=== PATIENT | male | born 1970 | race Caucasian/White ===

== ENCOUNTER 2016-10-22 12:48 | Inpatient (IN) | payer OTHER ==
[2016-10-22 14:40] VITALS: BMI 26.1
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
[2016-10-22] MEDS ORDERED: NICOTINE POLACRILEX 2 MG GUM BC PRN (16:58)
[2016-10-22] MEDS ORDERED: MENTHOL/PHENOL 1 EACH UD MM PRN (16:58)
[2016-10-22] MEDS ORDERED: MAGNESIUM HYDROX 2400MG/30ML ORAL SUSPENSION 30 ML CUP PO PRN (16:58)
[2016-10-22] MEDS ORDERED: guaiFENesin/D-METHORPHAN HB 10 ML UNIT-DOSE CUPS PO PRN (16:58)
[2016-10-22] MEDS ORDERED: IBUPROFEN 400 MG TABLET (FP) PO PRN (16:58)
[2016-10-22] MEDS ORDERED: LOPERAMIDE HCL 2 MG CAPSULE PO PRN (16:58)
[2016-10-22] MEDS ORDERED: P-EPHED 60MG/TRIPROLIDI 2.5MG TABLET PO PRN (16:58)
[2016-10-22] MEDS ORDERED: MAGNESIUM CITRATE 300 ML BOTTLE PO PRN (16:58)
[2016-10-22] MEDS ORDERED: ACETAMINOPHEN 325 MG TABLET (FP) PO PRN (16:58)
[2016-10-22] MEDS ORDERED: chlordiazePOXIDE HCL 25 MG CAPSULE PO ONE (17:45)
[2016-10-22] MEDS ORDERED: METHADONE HCL 10 MG TABLET (FOR DETOX USE ONLY) PO ONE ×2 (17:45→23:00)
[2016-10-22 20:27] LABS: URINE APPEARANCE CLEAR; URINE BILIRUBIN NEGATIVE (NEGATIVE); URINE COLOR AMBER; URINE GLUCOSE (UA) NEGATIVE (NEGATIVE); URINE KETONE 1+ (NEGATIVE); URINE LEUK ESTERASE NEGATIVE (NEGATIVE); URINE NITRITE NEGATIVE (NEGATIVE); URINE UROBILINOGEN 2.0 E.U/dl E.U./dl (0.2-1.0)
[2016-10-22 20:28] LABS: URINE BLOOD 1+ (NEGATIVE); URINE PROTEIN 1+ (NEGATIVE)
[2016-10-22 20:38] LABS: GRANULAR CASTS 6 /lpf; URINE BACTERIA RARE /hpf (NONE SEEN); URINE HYALINE CAST 8 /lpf; URINE MUCUS MANY; URINE RBC 1 /hpf (0-3); URINE WBC 3 /hpf (3-5)
[2016-10-22] MEDS: INSULIN SLIDING SCALE (NOVOLOG) 1 VIAL SQ SCH (21:06)
[2016-10-22] MEDS: chlordiazePOXIDE HCL 25 MG CAPSULE PO SCH (22:29)
[2016-10-22] MEDS: THIAMINE HCL 100 MG TABLET (FP) PO SCH (22:29)
[2016-10-22] MEDS: diphenhydrAMINE HCL 50 MG CAPSULE PO PRN (22:29)
[2016-10-23] MEDS: chlordiazePOXIDE HCL 25 MG CAPSULE PO SCH ×4 (05:44→22:34)
[2016-10-23] MEDS: INSULIN SLIDING SCALE (NOVOLOG) 1 VIAL SQ SCH ×4 (06:23→21:41)
[2016-10-23] MEDS ORDERED: METHADONE HCL 10 MG TABLET (FOR DETOX USE ONLY) PO SCH (10:00)
[2016-10-23] MEDS: PRENATAL VITAMINS W/ FOLIC ACID TABLET (FP) PO SCH (10:16)
[2016-10-23] MEDS: NICOTINE 14 MG/24 HOURS TOPICAL PATCH TD SCH (10:16)
[2016-10-23 10:46] LABS: ALBUMIN 4.1 g/dl (3.4-5.0); ALK PHOS 94 U/L (45-117); ANION GAP 12 (8-16); BILIRUBIN,TOTAL 0.8 mg/dL (0.2-1.0); CALCIUM 9.1 mg/dL (8.5-10.1); CO2 25 mmol/L (21-32); CREATININE 1.1 mg/dL (0.7-1.3); GLUCOSE,RANDOM 146 mg/dL (74-106); MCHC 33.5 g/dl (32.0-35.9); MEAN CELL VOLUME 89.7 fl (80-96); MEAN PLT VOLUME 8.3 fl (7.5-11.1); PLATELET COUNT 172 K/MM3 (134-434); RDW 15.2 % (11.9-15.9); SGOT/AST 101 U/L (15-37); SGPT/ALT 81 U/L (12-78); WHITE BLOOD COUNT 5.5 K/mm3 (4.0-10.0)
--- NOTE | 2016-10-23 11:39 | PN ---
S CIWA - CIWA Score Nausea/Vomitin Muscle Tremors: 4-Moderate,w/Arms Extend Anxiety: 4-Mod. Anxious/Guarded Agitation: 4-Moderately Restless Paroxysmal Sweats: 3 Orientation: 0-Oriented Tacttile Disturbances: 1-Very Mild Itch/Numbness Auditory Disturbances: 0-None Visual Disturbances: 0-None Headache: 0-None Present CIWA-Ar Total Score: 19 BHS COWS - Scale Resting Pulse: 1= [place] 81-100 Sweatin= Chills/Flushing Restless Observation: 1= Difficult to Sit Still Pupil Size: 1= Pupils >than Normal Bone or Joint Aches: 1= Mild Discomfort Runny Nose/ Eye Tearin= Nasal Congestion GI Upset > 30mins: 2= Nausea/Diarrhea Tremor Observation of Outstretched Hands: 2= Slight Tremor Visible Yawning Observation: 1= 1-2x During Session Anxiety or Irritability: 2=Irritable/Anxious Goose Flesh Skin: 3=Piloerection COWS Score: 16 S Progress Note (SOAP) Subjective: nausea, sweats, interrupted sleep, anxiety, tremor Objective: 10/23/16 11:38 Vital Signs - 24 hr 10/22/16 10/22/16 10/22/16 14:38 17:53 22:22 Temperature 98.6 F 98.1 F 99.2 F Pulse Rate 106 H 88 90 Respiratory 18 18 20 Rate Blood Pressure 123/71 115/76 121/74 10/23/16 10/23/16 10/23/16 00:30 03:30 06:37 Temperature 98.7 F Pulse Rate 64 Respiratory 18 18 18 Rate Blood Pressure 124/82 10/23/16 09:33 Temperature 97.8 F Pulse Rate 68 Respiratory 18 Rate Blood Pressure 105/74 Laboratory Tests 10/22/16 10/22/16 10/22/16 15:50 19:00 21:00 WBC RBC Hgb Hct MCV MCHC RDW Plt Count MPV Sodium Potassium Chloride Carbon Dioxide Anion Gap BUN Creatinine Creat Clearance w eGFR POC Glucometer 192 111 Random Glucose Calcium Total Bilirubin AST ALT Alkaline Phosphatase Total Protein Albumin Urine Color [place] Urine Appearance Clear Urine pH 6.0 Ur Specific [place] 1.020 Urine Protein 1+ H Urine Glucose (UA) Negative Urine Ketones 1+ H Urine Blood 1+ H Urine Nitrite Negative Urine Bilirubin Negative Urine Urobilinogen 2.0 e.u/dl Ur Leukocyte Esterase Negative Urine RBC 1 Urine WBC 3 Ur Epithelial Cells Rare Urine Bacteria Rare Hyaline Casts 8 Granular Casts 6 Urine Mucus Many 10/23/16 10/23/16 10/23/16 05:43 06:00 06:00 WBC 5.5 RBC 4.68 Hgb 14.0 Hct 41.9 MCV 89.7 MCHC 33.5 RDW 15.2 Plt Count 172 MPV 8.3 D Sodium 138 Potassium 3.9 Chloride 101 Carbon Dioxide 25 Anion Gap 12 BUN 7 D Creatinine 1.1 D Creat Clearance w eGFR > 60 POC Glucometer 103 Random Glucose 146 H D Calcium 9.1 Total Bilirubin 0.8 AST 101 H D ALT 81 H D Alkaline Phosphatase 94 D Total Protein 8.0 Albumin 4.1 Urine Color Urine Appearance Urine pH Ur Specific [place] Urine Protein Urine Glucose (UA) Urine Ketones Urine Blood Urine Nitrite Urine Bilirubin Urine Urobilinogen Ur Leukocyte Esterase Urine RBC Urine WBC Ur Epithelial Cells Urine Bacteria Hyaline Casts Granular Casts Urine Mucus Assessment: 10/23/16 11:39 withdrwal sx, hyperglycemia Plan: cont detox, monitor fs bid, diabetic diet, fluids, encourage ambulation
--- NOTE | 2016-10-23 12:31 | EKG ---
Test Reason : Blood Pressure : / mmHG Vent. Rate : 085 BPM Atrial Rate : 085 BPM P-R Int : 150 ms QRS Dur : 088 ms QT Int : 368 ms P-R-T Axes : 080 067 060 degrees QTc Int : 437 ms NORMAL SINUS RHYTHM NORMAL ECG NO PREVIOUS ECGS AVAILABLE Confirmed by ETELVINA ELLER, DAVID ([id number]) on 10/23/2016 12:31:10 PM Referred By: Confirmed By:DAVID MAIN MD
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
[2016-10-23] MEDS: chlordiazePOXIDE HCL 25 MG CAPSULE PO PRN (14:27)
[2016-10-23] MEDS: diphenhydrAMINE HCL 50 MG CAPSULE PO PRN (22:34)
[2016-10-23] MEDS: THIAMINE HCL 100 MG TABLET (FP) PO SCH (22:34)
[2016-10-24] MEDS: chlordiazePOXIDE HCL 25 MG CAPSULE PO SCH ×3 (05:35→17:24)
[2016-10-24] MEDS: INSULIN SLIDING SCALE (NOVOLOG) 1 VIAL SQ SCH ×2 (06:47→10:26)
[2016-10-24] MEDS: METHADONE HCL 5 MG TABLET (FOR DETOX USE ONLY) PO SCH (10:25)
[2016-10-24] MEDS: PRENATAL VITAMINS W/ FOLIC ACID TABLET (FP) PO SCH (10:26)
[2016-10-24] MEDS: NICOTINE 14 MG/24 HOURS TOPICAL PATCH TD SCH (10:26)
--- NOTE | 2016-10-24 11:38 | PN ---
S CIWA - CIWA Score Nausea/Vomitin Muscle Tremors: 4-Moderate,w/Arms Extend Anxiety: 4-Mod. Anxious/Guarded Agitation: 4-Moderately Restless Paroxysmal Sweats: 3 Orientation: 0-Oriented Tacttile Disturbances: 0-None Auditory Disturbances: 0-None Visual Disturbances: 0-None Headache: 0-None Present CIWA-Ar Total Score: 18 BHS COWS - Scale Resting Pulse: 0= [place] 80 or Below Sweatin= Chills/Flushing Restless Observation: 1= Difficult to Sit Still Pupil Size: 1= Pupils >than Normal Bone or Joint Aches: 1= Mild Discomfort Runny Nose/ Eye Tearin= Nasal Congestion GI Upset > 30mins: 2= Nausea/Diarrhea Tremor Observation of Outstretched Hands: 2= Slight Tremor Visible Yawning Observation: 1= 1-2x During Session Anxiety or Irritability: 2=Irritable/Anxious Goose Flesh Skin: 3=Piloerection COWS Score: 15 S Progress Note (SOAP) Subjective: nausea, sweats, interrupted sleep, anxiety, tremor Objective: 10/24/16 11:37 Vital Signs - 24 hr 10/23/16 10/23/16 10/23/16 14:02 17:28 22:44 Temperature 96.0 F L 98.4 F 97.3 F L Pulse Rate 73 76 64 Respiratory 18 18 18 Rate Blood Pressure 104/77 105/65 105/75 10/24/16 10/24/16 10/24/16 00:41 03:47 06:34 Temperature 97.1 F L Pulse Rate 75 Respiratory 18 18 16 Rate Blood Pressure 106/79 10/24/16 10/24/16 10:05 10:11 Temperature 96.4 F L 96.4 F L Pulse Rate 72 72 Respiratory 20 20 Rate Blood Pressure 97/67 97/67 Laboratory Tests 10/22/16 10/22/16 10/22/16 15:50 19:00 21:00 WBC RBC Hgb Hct MCV MCHC RDW Plt Count MPV Sodium Potassium Chloride Carbon Dioxide Anion Gap BUN Creatinine Creat Clearance w eGFR POC Glucometer 192 111 Random Glucose Calcium Total Bilirubin AST ALT Alkaline Phosphatase Total Protein Albumin Urine Color [place] Urine Appearance Clear Urine pH 6.0 Ur Specific [place] 1.020 Urine Protein 1+ H Urine Glucose (UA) Negative Urine Ketones 1+ H Urine Blood 1+ H Urine Nitrite Negative Urine Bilirubin Negative Urine Urobilinogen 2.0 e.u/dl Ur Leukocyte Esterase Negative Urine RBC 1 Urine WBC 3 Ur Epithelial Cells Rare Urine Bacteria Rare Hyaline Casts 8 Granular Casts 6 Urine Mucus Many RPR Titer 10/23/16 10/23/16 10/23/16 05:43 06:00 06:00 WBC 5.5 RBC 4.68 Hgb 14.0 Hct 41.9 MCV 89.7 MCHC 33.5 RDW 15.2 Plt Count 172 MPV 8.3 D Sodium 138 Potassium 3.9 Chloride 101 Carbon Dioxide 25 Anion Gap 12 BUN 7 D Creatinine 1.1 D Creat Clearance w eGFR > 60 POC Glucometer 103 Random Glucose 146 H D Calcium 9.1 Total Bilirubin 0.8 AST 101 H D ALT 81 H D Alkaline Phosphatase 94 D Total Protein 8.0 Albumin 4.1 Urine Color Urine Appearance Urine pH Ur Specific [place] Urine Protein Urine Glucose (UA) Urine Ketones Urine Blood Urine Nitrite Urine Bilirubin Urine Urobilinogen Ur Leukocyte Esterase Urine RBC Urine WBC Ur Epithelial Cells Urine Bacteria Hyaline Casts Granular Casts Urine Mucus RPR Titer 10/23/16 10/23/16 10/24/16 06:00 15:44 06:29 WBC RBC Hgb Hct MCV MCHC RDW Plt Count MPV Sodium Potassium Chloride Carbon Dioxide Anion Gap BUN Creatinine Creat Clearance w eGFR POC Glucometer 127 107 Random Glucose Calcium Total Bilirubin AST ALT Alkaline Phosphatase Total Protein Albumin Urine Color Urine Appearance Urine pH Ur Specific [place] Urine Protein Urine Glucose (UA) Urine Ketones Urine Blood Urine Nitrite Urine Bilirubin Urine Urobilinogen Ur Leukocyte Esterase Urine RBC Urine WBC Ur Epithelial Cells Urine Bacteria Hyaline Casts Granular Casts Urine Mucus RPR Titer Nonreactive Assessment: 10/24/16 11:37 withdrawal sx Plan: cont detox, fluids, amnbulation encouraged.
[2016-10-24] MEDS: chlordiazePOXIDE HCL 25 MG CAPSULE PO PRN (15:03)
[2016-10-24] MEDS: diphenhydrAMINE HCL 50 MG CAPSULE PO PRN (22:23)
[2016-10-24] MEDS: chlordiazePOXIDE 5 MG CAPSULE PO SCH (22:23)
[2016-10-24] MEDS: THIAMINE HCL 100 MG TABLET (FP) PO SCH (22:23)
[2016-10-25] MEDS: chlordiazePOXIDE 5 MG CAPSULE PO SCH ×3 (05:07→17:21)
[2016-10-25] MEDS: METHADONE HCL 5 MG TABLET (FOR DETOX USE ONLY) PO SCH (10:35)
[2016-10-25] MEDS: NICOTINE 14 MG/24 HOURS TOPICAL PATCH TD SCH (10:36)
[2016-10-25] MEDS: PRENATAL VITAMINS W/ FOLIC ACID TABLET (FP) PO SCH (10:36)
--- NOTE | 2016-10-25 11:41 | PN ---
BHS Progress Note (SOAP) Subjective: nausea, sweats, interrupted sleep, anxeity, tremor Objective: 10/25/16 11:40 Vital Signs - 8 hr 10/25/16 10/25/16 06:29 10:01 Temperature 97.1 F L 97.5 F L Pulse Rate 89 91 H Respiratory 18 20 Rate Blood Pressure 94/66 102/71 Laboratory Tests 10/22/16 10/22/16 10/22/16 15:50 19:00 21:00 WBC RBC Hgb Hct MCV MCHC RDW Plt Count MPV Sodium Potassium Chloride Carbon Dioxide Anion Gap BUN Creatinine Creat Clearance w eGFR POC Glucometer 192 111 Random Glucose Calcium Total Bilirubin AST ALT Alkaline Phosphatase Total Protein Albumin Urine Color [place] Urine Appearance Clear Urine pH 6.0 Ur Specific [place] 1.020 Urine Protein 1+ H Urine Glucose (UA) Negative Urine Ketones 1+ H Urine Blood 1+ H Urine Nitrite Negative Urine Bilirubin Negative Urine Urobilinogen 2.0 e.u/dl Ur Leukocyte Esterase Negative Urine RBC 1 Urine WBC 3 Ur Epithelial Cells Rare Urine Bacteria Rare Hyaline Casts 8 Granular Casts 6 Urine Mucus Many RPR Titer 10/23/16 10/23/16 10/23/16 05:43 06:00 06:00 WBC 5.5 RBC 4.68 Hgb 14.0 Hct 41.9 MCV 89.7 MCHC 33.5 RDW 15.2 Plt Count 172 MPV 8.3 D Sodium 138 Potassium 3.9 Chloride 101 Carbon Dioxide 25 Anion Gap 12 BUN 7 D Creatinine 1.1 D Creat Clearance w eGFR > 60 POC Glucometer 103 Random Glucose 146 H D Calcium 9.1 Total Bilirubin 0.8 AST 101 H D ALT 81 H D Alkaline Phosphatase 94 D Total Protein 8.0 Albumin 4.1 Urine Color Urine Appearance Urine pH Ur Specific [place] Urine Protein Urine Glucose (UA) Urine Ketones Urine Blood Urine Nitrite Urine Bilirubin Urine Urobilinogen Ur Leukocyte Esterase Urine RBC Urine WBC Ur Epithelial Cells Urine Bacteria Hyaline Casts Granular Casts Urine Mucus RPR Titer 10/23/16 10/23/16 10/23/16 06:00 15:44 21:14 WBC RBC Hgb Hct MCV MCHC RDW Plt Count MPV Sodium Potassium Chloride Carbon Dioxide Anion Gap BUN Creatinine Creat Clearance w eGFR POC Glucometer 127 179 Random Glucose Calcium Total Bilirubin AST ALT Alkaline Phosphatase Total Protein Albumin Urine Color Urine Appearance Urine pH Ur Specific [place] Urine Protein Urine Glucose (UA) Urine Ketones Urine Blood Urine Nitrite Urine Bilirubin Urine Urobilinogen Ur Leukocyte Esterase Urine RBC Urine WBC Ur Epithelial Cells Urine Bacteria Hyaline Casts Granular Casts Urine Mucus RPR Titer Nonreactive 10/24/16 06:29 WBC RBC Hgb Hct MCV MCHC RDW Plt Count MPV Sodium Potassium Chloride Carbon Dioxide Anion Gap BUN Creatinine Creat Clearance w eGFR POC Glucometer 107 Random Glucose Calcium Total Bilirubin AST ALT Alkaline Phosphatase Total Protein Albumin Urine Color Urine Appearance Urine pH Ur Specific [place] Urine Protein Urine Glucose (UA) Urine Ketones Urine Blood Urine Nitrite Urine Bilirubin Urine Urobilinogen Ur Leukocyte Esterase Urine RBC Urine WBC Ur Epithelial Cells Urine Bacteria Hyaline Casts Granular Casts Urine Mucus RPR Titer Assessment: 10/25/16 11:40 withdrawal sx, hypeerglycemia, elevated BR Plan: cont detox, dieatry advice/diabetic diet ordered, fluids,
[2016-10-25] MEDS: diphenhydrAMINE HCL 50 MG CAPSULE PO PRN (22:19)
[2016-10-25] MEDS: chlordiazePOXIDE HCL 10 MG CAPSULE PO SCH (22:19)
[2016-10-25] MEDS: THIAMINE HCL 100 MG TABLET (FP) PO SCH (22:19)
[2016-10-26] MEDS: MAG HYDROX/AL HYDROX/SIMETH 30 ML UNIT-DOSE CUP PO PRN ×2 (00:49→20:48)
[2016-10-26] MEDS: chlordiazePOXIDE HCL 10 MG CAPSULE PO SCH ×3 (05:18→17:15)
[2016-10-26] MEDS ORDERED: METHADONE HCL 10 MG TABLET (FOR DETOX USE ONLY) PO SCH (10:00)
[2016-10-26] MEDS: PRENATAL VITAMINS W/ FOLIC ACID TABLET (FP) PO SCH (10:15)
[2016-10-26] MEDS: NICOTINE 14 MG/24 HOURS TOPICAL PATCH TD SCH (10:15)
--- NOTE | 2016-10-26 11:30 | PN ---
BHS Progress Note (SOAP) Subjective: SWEATING,INTERRUPTED SLEEP,RESTLESS. Objective: 10/26/16 11:26 Vital Signs - 8 hr 10/26/16 10/26/16 06:06 10:40 Temperature 96.4 F L 97 F L Pulse Rate 85 78 Respiratory 16 20 Rate Blood Pressure 106/77 83/63 Laboratory Last Values WBC 5.5 K/mm3 (4.0-10.0) 10/23/16 06:00 RBC 4.68 M/mm3 (4.00-5.60) 10/23/16 06:00 Hgb 14.0 GM/dL (11.7-16.9) 10/23/16 06:00 Hct 41.9 % (35.4-49) 10/23/16 06:00 MCV 89.7 fl (80-96) 10/23/16 06:00 MCHC 33.5 g/dl (32.0-35.9) 10/23/16 06:00 RDW 15.2 % (11.9-15.9) 10/23/16 06:00 Plt Count 172 K/MM3 (134-434) 10/23/16 06:00 MPV 8.3 fl (7.5-11.1) D 10/23/16 06:00 Sodium 138 mmol/L (136-145) 10/23/16 06:00 Potassium 3.9 mmol/L (3.5-5.1) 10/23/16 06:00 Chloride 101 mmol/L (98-107) 10/23/16 06:00 Carbon Dioxide 25 mmol/L (21-32) 10/23/16 06:00 Anion Gap 12 (8-16) 10/23/16 06:00 BUN 7 mg/dL (7-18) D 10/23/16 06:00 Creatinine 1.1 mg/dL (0.7-1.3) D 10/23/16 06:00 Creat Clearance w eGFR > 60 (>60) 10/23/16 06:00 POC Glucometer 107 UNITS (()) 10/24/16 06:29 Random Glucose 146 mg/dL (74-106) H D 10/23/16 06:00 Calcium 9.1 mg/dL (8.5-10.1) 10/23/16 06:00 Total Bilirubin 0.8 mg/dL (0.2-1.0) 10/23/16 06:00 AST 101 U/L (15-37) H D 10/23/16 06:00 ALT 81 U/L (12-78) H D 10/23/16 06:00 Alkaline Phosphatase 94 U/L (45-117) D 10/23/16 06:00 Total Protein 8.0 g/dl (6.4-8.2) 10/23/16 06:00 Albumin 4.1 g/dl (3.4-5.0) 10/23/16 06:00 Urine Color [place] 10/22/16 19:00 Urine Appearance Clear 10/22/16 19:00 Urine pH 6.0 (5.0-8.0) 10/22/16 19:00 Ur Specific [place] 1.020 (1.001-1.035) 10/22/16 19:00 Urine Protein 1+ (NEGATIVE) H 10/22/16 19:00 Urine Glucose (UA) Negative (NEGATIVE) 10/22/16 19:00 Urine Ketones 1+ (NEGATIVE) H 10/22/16 19:00 Urine Blood 1+ (NEGATIVE) H 10/22/16 19:00 Urine Nitrite Negative (NEGATIVE) 10/22/16 19:00 Urine Bilirubin Negative (NEGATIVE) 10/22/16 19:00 Urine Urobilinogen 2.0 e.u/dl E.U./dl (0.2-1.0) 10/22/16 19:00 Ur Leukocyte Esterase Negative (NEGATIVE) 10/22/16 19:00 Urine RBC 1 /hpf (0-3) 10/22/16 19:00 Urine WBC 3 /hpf (3-5) 10/22/16 19:00 Ur Epithelial Cells Rare /hpf (FEW) 10/22/16 19:00 Urine Bacteria Rare /hpf (NONE SEEN) 10/22/16 19:00 Hyaline Casts 8 /lpf 10/22/16 19:00 Granular Casts 6 /lpf 10/22/16 19:00 Urine Mucus Many 10/22/16 19:00 RPR Titer Nonreactive (NONREACTIVE) 10/23/16 06:00 LABS NOTED Assessment: 10/26/16 11:29 WITHDRAWAL SX. Plan: CONTINUE DETOX REPEAT U/A
[2016-10-26 16:31] LABS: URINE APPEARANCE CLEAR; URINE BILIRUBIN NEGATIVE (NEGATIVE); URINE BLOOD NEGATIVE (NEGATIVE); URINE COLOR LTYELLOW; URINE GLUCOSE (UA) NEGATIVE (NEGATIVE); URINE KETONE NEGATIVE (NEGATIVE); URINE LEUK ESTERASE NEGATIVE (NEGATIVE); URINE NITRITE NEGATIVE (NEGATIVE); URINE PROTEIN NEGATIVE (NEGATIVE); URINE UROBILINOGEN NEGATIVE E.U./dl (0.2-1.0)
[2016-10-26] MEDS: diphenhydrAMINE HCL 50 MG CAPSULE PO PRN (22:18)
[2016-10-26] MEDS: THIAMINE HCL 100 MG TABLET (FP) PO SCH (22:18)
[2016-10-27] MEDS: MAG HYDROX/AL HYDROX/SIMETH 30 ML UNIT-DOSE CUP PO PRN (03:22)
[2016-10-27] MEDS ORDERED: METHADONE HCL 5 MG TABLET (FOR DETOX USE ONLY) PO SCH (06:00)
[2016-10-27 06:24] VITALS: BP 110/76; PULSE 85; TEMP 97
[2016-10-27] MEDS: NICOTINE 14 MG/24 HOURS TOPICAL PATCH TD SCH (09:01)
[2016-10-27] MEDS: PRENATAL VITAMINS W/ FOLIC ACID TABLET (FP) PO SCH (09:01)
--- NOTE | 2016-10-27 10:26 | DS ---
[facility] Detox Discharge Summary Admission Date: 10/22/16 Discharge Date: 10/27/16 - History Present History: Alcohol Dependence, Opioid Dependence Pertinent Past History: DMT2 - Physical Exam Results Vital Signs: Vital Signs Temperature 97.0 F L 10/27/16 06:24 Pulse Rate 85 10/27/16 06:24 Respiratory Rate 18 10/27/16 06:24 Blood Pressure 110/76 10/27/16 06:24 O2 Sat by Pulse Oximetry (%) Pertinent Admission Physical Exam Findings: Withdrawal symptoms Laboratory Tests 10/22/16 10/22/16 10/22/16 15:50 19:00 21:00 WBC RBC Hgb Hct MCV MCHC RDW Plt Count MPV Sodium Potassium Chloride Carbon Dioxide Anion Gap BUN Creatinine Creat Clearance w eGFR POC Glucometer 192 111 Random Glucose Calcium Total Bilirubin AST ALT Alkaline Phosphatase Total Protein Albumin Urine Color [place] Urine Appearance Clear Urine pH 6.0 Ur Specific [place] 1.020 Urine Protein 1+ H Urine Glucose (UA) Negative Urine Ketones 1+ H Urine Blood 1+ H Urine Nitrite Negative Urine Bilirubin Negative Urine Urobilinogen 2.0 e.u/dl Ur Leukocyte Esterase Negative Urine RBC 1 Urine WBC 3 Ur Epithelial Cells Rare Urine Bacteria Rare Hyaline Casts 8 Granular Casts 6 Urine Mucus Many RPR Titer 10/23/16 10/23/16 10/23/16 05:43 06:00 06:00 WBC 5.5 RBC 4.68 Hgb 14.0 Hct 41.9 MCV 89.7 MCHC 33.5 RDW 15.2 Plt Count 172 MPV 8.3 D Sodium 138 Potassium 3.9 Chloride 101 Carbon Dioxide 25 Anion Gap 12 BUN 7 D Creatinine 1.1 D Creat Clearance w eGFR > 60 POC Glucometer 103 Random Glucose 146 H D Calcium 9.1 Total Bilirubin 0.8 AST 101 H D ALT 81 H D Alkaline Phosphatase 94 D Total Protein 8.0 Albumin 4.1 Urine Color Urine Appearance Urine pH Ur Specific [place] Urine Protein Urine Glucose (UA) Urine Ketones Urine Blood Urine Nitrite Urine Bilirubin Urine Urobilinogen Ur Leukocyte Esterase Urine RBC Urine WBC Ur Epithelial Cells Urine Bacteria Hyaline Casts Granular Casts Urine Mucus RPR Titer 10/23/16 10/23/16 10/23/16 06:00 15:44 21:14 WBC RBC Hgb Hct MCV MCHC RDW Plt Count MPV Sodium Potassium Chloride Carbon Dioxide Anion Gap BUN Creatinine Creat Clearance w eGFR POC Glucometer 127 179 Random Glucose Calcium Total Bilirubin AST ALT Alkaline Phosphatase Total Protein Albumin Urine Color Urine Appearance Urine pH Ur Specific [place] Urine Protein Urine Glucose (UA) Urine Ketones Urine Blood Urine Nitrite Urine Bilirubin Urine Urobilinogen Ur Leukocyte Esterase Urine RBC Urine WBC Ur Epithelial Cells Urine Bacteria Hyaline Casts Granular Casts Urine Mucus RPR Titer Nonreactive 10/24/16 10/26/16 10/26/16 06:29 13:30 16:13 WBC RBC Hgb Hct MCV MCHC RDW Plt Count MPV Sodium Potassium Chloride Carbon Dioxide Anion Gap BUN Creatinine Creat Clearance w eGFR POC Glucometer 107 133 Random Glucose Calcium Total Bilirubin AST ALT Alkaline Phosphatase Total Protein Albumin Urine Color Ltyellow Urine Appearance Clear Urine pH 7.0 Ur Specific [place] 1.010 Urine Protein Negative Urine Glucose (UA) Negative Urine Ketones Negative Urine Blood Negative Urine Nitrite Negative Urine Bilirubin Negative Urine Urobilinogen Negative Ur Leukocyte Esterase Negative Urine RBC Urine WBC Ur Epithelial Cells Urine Bacteria Hyaline Casts Granular Casts Urine Mucus RPR Titer Labs noted - Treatment Hospital Course: Detox Protocol Followed, Detoxed Safely, Responded well, Discharged Condition Good - Medication Discharge Medications: Ambulatory Orders Bupropion HCl [Wellbutrin -] 150 mg PO DAILY 08/21/15 Metformin HCl [Glucophage -] 500 mg PO BID@0700,1630 #60 tablet 01/11/16 Bupropion HCl [Wellbutrin Xl -] 150 mg PO DAILY #30 tab.sr.[id number] 10/23/16 - Diagnosis (1) Alcohol dependence with uncomplicated withdrawal Status: Acute (2) Opioid dependence with withdrawal Status: Acute (3) Diabetes mellitus Status: Chronic Qualifiers: Diabetes mellitus type: type 2 Diabetes mellitus complication status: without complication Diabetes mellitus adjunct faculty for medical terminology insulin use: without adjunct faculty for medical terminology use Qualified Code(s): E11.9 - Type 2 diabetes mellitus without complications - AMA Did Patient Leave Against Medical Advice: No
== END 2016-10-27 09:06 | disposition home or self-care (01) | DRG 773 ==
LOC: YASAS 12:48 → Y3N 16:20
PROVIDERS: ADMIT Internal Medicine; ATTEND Internal Medicine
PROC: HZ2ZZZZ Detoxification Services for Substance Abuse Treatment (ICD-10-PCS; principal; 2016-10-22)
DX: F11.23 Opioid dependence with withdrawal (principal); F10.230 Alcohol dependence with withdrawal, uncomplicated; F17.210 Nicotine dependence, cigarettes, uncomplicated; F43.10 Post-traumatic stress disorder, unspecified; F19.24 Other psychoactive substance dependence with psychoactive substance-induced mood disorder; E11.65 Type 2 diabetes mellitus with hyperglycemia; R79.89 Other specified abnormal findings of blood chemistry; Z85.819 Personal history of malignant neoplasm of unspecified site of lip, oral cavity, and pharynx
CPT/HCPCS: 36415; 80053; 81003; 81015; 85027; 86593; 93005; 93010